=== PATIENT | female | born 1965 | race Caucasian/White ===

== ENCOUNTER 2016-09-12 09:40 | Emergency (ER) | payer MEDICAID | END 2016-09-12 10:53 | disposition home or self-care (01) | LOC: FASTR 09:40 | DX: S50.12XA Contusion of left forearm, initial encounter (principal); W18.30XA Fall on same level, unspecified, initial encounter; Y93.89 Activity, other specified; Y92.009 Unspecified place in unspecified non-institutional (private) residence as the place of occurrence of the external cause; S63.502A Unspecified sprain of left wrist, initial encounter; M19.232 Secondary osteoarthritis, left wrist; Z79.899 Other long term (current) drug therapy ==

== ENCOUNTER 2016-09-17 20:06 | Emergency (ER) | payer MEDICAID ==
[2016-09-17] MEDS ORDERED: CLINDAMYCIN 600 MG/4 ML VIAL ONE (22:30)
== END 2016-09-17 23:03 | disposition home or self-care (01) ==
LOC: ER 20:06
DX: L03.114 Cellulitis of left upper limb (principal); Z79.899 Other long term (current) drug therapy
CPT/HCPCS: 36415; 80053; 85025; 96372